=== PATIENT | male | born 1965 | race Caucasian/White ===

== ENCOUNTER 2018-08-21 05:34 | Inpatient (IN) | payer BC ==
[2018-08-21 06:01] LABS: #Eosinphils 0.1 thou/uL (0.0-0.7); #Monocytes 0.6 thou/uL (0.11-0.59); #Neutrophils 10.2 thou/uL (1.40-6.50); %Basophils 0.4 % (0.0-1.0); %Eosinophils 0.5 % (0.0-10.0); %Lymphocytes 8.1 % (21.0-51.0); %Neutrophils 86.1 % (42.0-75.0); Hemoglobin 14.5 g/dL (14.0-18.0); Mean Corpuscular HGB CONC 33.2 g/dL (32.0-36.0); Mean Corpuscular Hemoglobin 30.1 pg (27.0-31.0); Mean Corpuscular Volume 90.8 fL (78.0-98.0); Mean Platelet Volume 6.5 fL (7.4-10.4); Platelet Count 265 thou/uL (130-400); White Blood Cell (WBC) Count 11.8 thou/uL (4.8-10.8)
[2018-08-21 06:06] LABS: Prothrombin Time 13.6 SEC (12.0-14.7)
[2018-08-21 06:08] LABS: PTT 80.7 SEC (22.9-36.1)
[2018-08-21] MEDS ORDERED: Heparin 10,000 UNITS/1 ML VIAL ONE ×2 (06:13→06:36)
[2018-08-21] MEDS ORDERED: Fentanyl 100 MCG/2 ML VIAL ONE (06:13)
[2018-08-21 06:17] LABS: ALT (SGPT) 20 U/L (8-55); AST (SGOT) 43 U/L (5-34); Albumin 4.2 g/dL (3.5-5.0); Alkaline Phosphatase 73 U/L (40-150); Anion Gap 13 mmol/L (10-20); BUN (Urea Nitrogen) 18 mg/dL (8.4-25.7); Bilirubin, Total 0.4 mg/dL (0.2-1.2); Calc. Creatinine Clearance 0 mL/min (70-130); Calcium 9.1 mg/dL (7.8-10.44); Carbon Dioxide 25 mmol/L (22-29); Chloride 104 mmol/L (98-107); Estimated GFR-MDRD 66; Globulin 2.6 g/dL (2.4-3.5); Glucose 132 mg/dL (70-105); Potassium 4.4 mmol/L (3.5-5.1); Protein, Total 6.8 g/dL (6.0-8.3); Sodium 138 mmol/L (136-145)
[2018-08-21] MEDS ORDERED: Aggrastat 12.5 MG/250 ML 250 ML ONE (06:24)
[2018-08-21] MEDS ORDERED: Clopidogrel Bisulfate 300 MG TAB ONE (06:31)
--- NOTE | 2018-08-21 06:54 | HP ---
HISTORY: Karl Pina is a 53-year-old white male without any previous health problems. Over the last 2 weeks, he has had several episodes of chest pressure. He states that it occur while driving and would last approximately 1 hour. This morning, he was awakened at 1:00 a.m. with substernal chest pressure, associated with nausea, shortness of breath, and diaphoresis. He went to the emergency room in [place] and had 2 to [address]-segment elevation in II, III, and aVF as well as 1 to 2 mm V5, V6. Due to the time of transfer, the emergency room physician was instructed to give him TNKase followed by [id number]. He now arrives stating that his chest pain has improved, but it is still at approximately 50% level from what it was when he went into the emergency room. Also, EKG at this time shows continued 1 mm of elevation in II, III, and aVF, V5, and V6, one with reciprocal changes in I and aVL. PAST MEDICAL HISTORY: He denies any history of hypertension, diabetes, or hypercholesterolemia. MEDICATIONS: None. ALLERGIES: PENICILLIN. PAST SURGICAL HISTORY: Tonsillectomy and anal fistula removal. SOCIAL HISTORY: He smokes 1 pack per day. He does not drink. FAMILY HISTORY: He is adopted. REVIEW OF SYSTEMS: A 10-point review of systems is otherwise unremarkable. PHYSICAL EXAMINATION: VITAL SIGNS: Blood pressure 120/70, pulse of 80. HEENT: PERRL. NECK: Supple. CHEST: Clear. CARDIAC: S1 and S2 normal without any S3, S4, or murmurs. ABDOMEN: Normal bowel sounds without tenderness or organomegaly. EXTREMITIES: Revealed no clubbing, cyanosis, or edema. NEUROLOGIC: Grossly intact. SKIN: Warm and dry. LABORATORY DATA: EKG findings as described above. [place] labs - sodium 140, potassium 4.1, chloride 101, carbon dioxide 27, BUN 18, and creatinine 1.3. AST and ALT are normal. CK-MB 3.20, troponin I 0.384. BNP 67.8. CBC is unremarkable. INR of 1.0. IMPRESSION: 1. Inferolateral ST-elevation myocardial infarction. He was given TNKase due to travel delay, which ended up being over 2 hours. He has had what appears to be partial reperfusion with improvement on EKG as well as in his pain. However, he continues to have EKG changes and pain. 2. Smoker. 3. Unknown cholesterol status. RECOMMENDATIONS: Situation discussed with the patient. With continued ongoing pain and EKG changes, although improved, it is recommended that he undergo catheterization at this time. Risks of cardiac catheterization were discussed including , myocardial infarction, dye reaction, vascular injury, CVA, transfusion, limb loss, renal loss, etc. Also risk of intervention with PTCA and stent placement were discussed including , myocardial infarction, emergent CABG, restenosis, stent thrombosis, vessel perforation, etc. We discussed bare-metal stent versus drug-eluting stents. He has never had any gastrointestinal bleeding. No history of stroke and no history of upcoming surgeries. Overall, it is recommended that a drug-eluting stent be placed if needed. Job ID: [id number] MTDD
[2018-08-21] MEDS ORDERED: Sodium Chloride 0.9% 1,000 ML IV SCH (07:00)
[2018-08-21] MEDS ORDERED: Nitroglycerin 0.4 MG TAB (25 Tab Bottle) SL PRN (07:02)
[2018-08-21] MEDS ORDERED: Mag-Al 1200 mg/1200 mg/30 ML UDCUP PO PRN (07:03)
[2018-08-21] MEDS ORDERED: Milk Of Magnesia 30 ML UDCUP PO PRN (07:03)
[2018-08-21 07:13] LABS: CKMB 40.4 ng/mL (0-6.6)
[2018-08-21] MEDS ORDERED: Aggrastat 12.5 MG/250 ML 250 ML IVPB SCH (07:15)
[2018-08-21 08:34] VITALS: BMI 26.8
[2018-08-21] MEDS: Morphine 2 MG/ML SYRINGE SLOW IVP PRN ×2 (09:18→15:46)
[2018-08-21] MEDS: Aspirin Chewable 81 MG TAB PO SCH (09:22)
[2018-08-21 09:32] LABS: Cardiac Risk 4.5 (Less than 4.5)
[2018-08-21 09:40] LABS: Hemoglobin A1c 5.6 % (4.0-6.0)
[2018-08-21] MEDS ORDERED: Iopamidol 370 76% 50 ML VIAL FS ONE (10:15)
[2018-08-21] MEDS ORDERED: Iopamidol 370 76% 100 ML VIAL ONE (10:15)
--- NOTE | 2018-08-21 12:42 | CON ---
DATE OF CONSULTATION: HISTORY OF PRESENT ILLNESS: Karl Pina is a 53-year-old gentleman from [place] is a national dedicated truck driver, who apparently developed chest pain and shortness of breath. Abnormal EKG. He was brought to the ER and underwent cardiac catheterization, found to have three-vessel disease and a stent was placed in the circumflex. Pulmonary/Critical Care will be seeing while in the ICU. He is a smoker. He says he smokes less than half pack a day. Otherwise, denies any history of asthma, TB, or pneumonia. Most days, he is very active. PAST MEDICAL HISTORY: Otherwise surprisingly unremarkable for any major medical problems, history of diabetes and hypertension. PREVIOUS SURGERIES: Remote history of fistula surgery, tonsils, finger surgery. SOCIAL HISTORY: Alcohol, minimal. ALLERGIES: PENICILLIN. REVIEW OF SYSTEMS: A 10-point negative. PHYSICAL EXAMINATION: VITAL SIGNS: In the ICU, blood pressure 110/74, pulse 74, sats 100%, respiratory rate 20. GENERAL: Awake, alert, responsive. CHEST: No wheezing or crackles. CARDIAC: Normal S1, S2. No gallops. ABDOMEN: No masses. LABORATORY DATA: White count 84326, H and H is 14 and 43, platelet count is normal. Creatinine 1.7. GFR is 66. Troponin is 2.5. IMPRESSION: Inferior myocardial infarction, non ST-segment elevation. Status post catheter with a single stent, tobacco abuse. PLAN: Pulmonary/Critical Care will follow while in the ICU. He is on Aggrastat infusion, nitroglycerin p.r.n., morphine p.r.n., and Plavix. Probably, we will order a baseline chest x-ray in the morning. He has not had one. We will follow. Job ID: [id number]
[2018-08-21 18:35] LABS: CKMB 237.7 ng/mL (0-6.6)
[2018-08-21 18:45] LABS: Troponin I 200.264 ng/mL (< 0.028)
[2018-08-21] MEDS: Atorvastatin Calcium 40 MG TAB PO SCH (20:48)
[2018-08-21] MEDS ORDERED: Atorvastatin Calcium 20 MG TAB PO SCH (21:00)
[2018-08-22 00:42] LABS: Critical Call CKMB RESULT DECREASING
[2018-08-22 00:59] LABS: Critical Call Chem Troponin I RESULT DECREASING
[2018-08-22 06:08] LABS: #Lymphocytes 1.1 thou/uL (1.20-3.40); #Monocytes 0.4 thou/uL (0.11-0.59); %Basophils 0.2 % (0.0-1.0); %Eosinophils 0.3 % (0.0-10.0); %Lymphocytes 16.4 % (21.0-51.0); %Monocytes 6.7 % (0.0-10.0); %Neutrophils 76.5 % (42.0-75.0); Hemoglobin 12.4 g/dL (14.0-18.0); Mean Corpuscular HGB CONC 33.2 g/dL (32.0-36.0); Mean Corpuscular Volume 90.2 fL (78.0-98.0); Mean Platelet Volume 6.7 fL (7.4-10.4); Platelet Count 212 thou/uL (130-400); Red Blood Cell (RBC) Count 4.14 mill/uL (4.70-6.10); White Blood Cell (WBC) Count 6.5 thou/uL (4.8-10.8)
[2018-08-22 06:32] LABS: ALT (SGPT) 49 U/L (8-55); AST (SGOT) 205 U/L (5-34); Albumin 3.6 g/dL (3.5-5.0); Alkaline Phosphatase 63 U/L (40-150); Anion Gap 11 mmol/L (10-20); BUN (Urea Nitrogen) 14 mg/dL (8.4-25.7); Bilirubin, Total 0.4 mg/dL (0.2-1.2); Calc. Creatinine Clearance 93 mL/min (70-130); Calcium 8.8 mg/dL (7.8-10.44); Carbon Dioxide 27 mmol/L (22-29); Chloride 104 mmol/L (98-107); Estimated GFR-MDRD 68; Globulin 2.3 g/dL (2.4-3.5); Glucose 161 mg/dL (70-105); Potassium 3.7 mmol/L (3.5-5.1); Protein, Total 5.9 g/dL (6.0-8.3); Sodium 138 mmol/L (136-145)
[2018-08-22 06:36] LABS: CKMB 47.3 ng/mL (0-6.6); Critical Call CKMB RESULT DECREASING
[2018-08-22 06:56] LABS: Critical Call Chem Troponin I RESULT DECREASING; Troponin I 77.625 ng/mL (< 0.028)
--- NOTE | 2018-08-22 08:25 | RAD ---
PORTABLE CHEST: DATE: 08/22/2018. PROVIDED CLINICAL HISTORY: Myocardial infarction. FINDINGS: Cardiac silhouette appears prominent, likely at least partially on the basis of portable technique. No focal consolidation, pleural fluid, or pneumothorax apparent. IMPRESSION: No evidence for an acute cardiopulmonary process. POS: TPC
[2018-08-22] MEDS: Aspirin Chewable 81 MG TAB PO SCH (08:42)
[2018-08-22] MEDS: Clopidogrel Bisulfate 75 MG TAB PO SCH (08:42)
--- NOTE | 2018-08-22 09:22 | PRG ---
DATE OF SERVICE: 08/22/2018 SUBJECTIVE: This morning, he is awake, alert, and responsive, in no distress. No shortness of breath. Chest x-ray was normal. OBJECTIVE: VITAL SIGNS: His sats were 96% on room air, blood pressure 109/75, temperature 98, and respiratory rate 18. CHEST: Decreased breath sounds. No wheezing. CARDIAC: Normal S1 and S2. No gallops. ABDOMEN: No masses. LABORATORY DATA: His troponin markedly eleveted ASSESSMENT: Status post inferior myocardial infarction, status post stent, tobacco abuse. PLAN: He is on Plavix, aspirin, pain relief, nitroglycerin p.r.n., and supportive care. Pulmonary will follow while in the ICU. Job ID: [id number] MTDD
--- NOTE | 2018-08-22 15:43 | EKG ---
Test Reason : POST STENT Blood Pressure : / mmHG Vent. Rate : 083 BPM Atrial Rate : 083 BPM P-R Int : 148 ms QRS Dur : 120 ms QT Int : 402 ms P-R-T Axes : 039 -12 099 degrees QTc Int : 472 ms Normal sinus rhythm Right bundle branch block Inferior infarct , age undetermined Abnormal ECG Confirmed by ZOYA MCNULTY ([id number]) on 08/22/2018 3:42:39 PM Referred By: CHARLEY Confirmed By:ZOYA MCNULTY
--- NOTE | 2018-08-22 16:24 | EKG ---
Test Reason : Blood Pressure : / mmHG Vent. Rate : 083 BPM Atrial Rate : 083 BPM P-R Int : 144 ms QRS Dur : 112 ms QT Int : 402 ms P-R-T Axes : 046 -20 140 degrees QTc Int : 472 ms Normal sinus rhythm Incomplete right bundle branch block T wave abnormality, consider anterolateral ischemia Possible Lateral infarct , age undetermined Inferior infarct (cited on or before 21-AUG-2018) Abnormal ECG Confirmed by ZOYA MCNULTY ([id number]) on 08/22/2018 4:23:41 PM Referred By: CHARLEY Confirmed By:ZOYA MCNULTY
[2018-08-22] MEDS: Carvedilol 3.125 MG TAB PO SCH (17:36)
[2018-08-22] MEDS: Atorvastatin Calcium 40 MG TAB PO SCH (21:00)
[2018-08-23] MEDS: Carvedilol 3.125 MG TAB PO SCH ×2 (08:20→16:57)
[2018-08-23] MEDS: Clopidogrel Bisulfate 75 MG TAB PO SCH (08:20)
[2018-08-23] MEDS: Aspirin Chewable 81 MG TAB PO SCH (08:20)
[2018-08-23] MEDS ORDERED: CHLORPHENIRAMINE 4 MG PO PRN (11:23)
[2018-08-23] MEDS: Acetaminophen 325 MG TAB PO PRN ×2 (12:10→17:01)
[2018-08-23] MEDS: Loratadine 10 MG TAB PO PRN (13:12)
[2018-08-23] MEDS: Atorvastatin Calcium 40 MG TAB PO SCH (19:53)
[2018-08-24] MEDS: Loratadine 10 MG TAB PO PRN (08:47)
[2018-08-24] MEDS: Carvedilol 3.125 MG TAB PO SCH (08:47)
[2018-08-24] MEDS: Clopidogrel Bisulfate 75 MG TAB PO SCH (08:47)
[2018-08-24] MEDS: Aspirin Chewable 81 MG TAB PO SCH (08:48)
[2018-08-24 11:41] VITALS: BP 126/91; TEMP 98.7
--- NOTE | 2018-08-25 06:22 | DIS ---
DATE OF ADMISSION: 08/21/2018 DATE OF DISCHARGE: 08/24/2018 DISCHARGE DIAGNOSES: 1. Inferolateral ST-elevation myocardial infarction with TNKase given in [place], then drug-eluting stent placed in the mid circumflex. 2. Smoker. 3. Hypercholesterolemia. 4. Moderate left ventricular dysfunction with ischemic cardiomyopathy, ejection fraction 35 to 40%. HOSPITAL COURSE: The patient will be seen in 2 months for followup with fasting lipid profile, complete metabolic panel, and EKG being obtained. DISCHARGE MEDICATIONS: 1. Aspirin 81 mg daily. 2. Atorvastatin 40 mg daily. 3. Carvedilol 3.125 b.i.d. 4. Plavix 75 mg daily. 5. Nitroglycerin p.r.n. HOSPITAL COURSE: Mr. Pina had 2 weeks of progressive chest pressure and then awoke at 1:00 a.m. on the morning of admission with substernal chest pressure. He went to [place] [facility], had 2 to [address]-segment elevation in II, III, and aVF as well as 1 to 2 mm in V5 and V6. Due to the concern of transfer time, he was given TNKase followed by heparin. When he arrived, he stated his pain had significantly improved, but he was still having pain. EKG also done, he continued to have 1 mm elevation in II, III, aVF, V5, and V6. Decision was then made to go to the [facility] emergently. At catheterization, the left main was normal. The LAD had a 50% distal stenosis and a 70% apical stenosis. The circumflex had a 95% mid stenosis and a 50% large obtuse marginal three stenosis. The right coronary artery had 50% to 60% diffuse mid RCA disease. He underwent placement of a Synergy drug-eluting stent 3.5 x 20 mm. It was reduced from 95% to 0%. Left ventriculogram revealed moderate anterior and inferobasal hypokinesis with ejection fraction of 35% to 40%. His cholesterol is 184, triglycerides 57, HDL 41, and LDL 132. We discussed low-cholesterol diet and he was placed on atorvastatin. It was recommend that he never smokes again. We discussed complete avoidance of any nicotine. At the time of discharge, he was walking over 500 feet in the [place]. With his left ventricular dysfunction, he was placed on carvedilol, however, his blood pressure was such that BRIANNE inhibitor could not be started at this time. Job ID: [id number]
== END 2018-08-24 14:10 | disposition home or self-care (01) | DRG 247 ==
LOC: ERS 05:34 → SDC/OP 05:52 → CCU 06:58 → 2SE 08-22 17:50
PROVIDERS: ADMIT Internal Medicine Cardiovascular Disease; ATTEND Internal Medicine Cardiovascular Disease
PROC: 4A023N7 Measurement of Cardiac Sampling and Pressure, Left Heart, Percutaneous Approach (ICD-10-PCS; principal; 2018-08-21)
PROC: 027034Z Dilation of Coronary Artery, One Artery with Drug-eluting Intraluminal Device, Percutaneous Approach (ICD-10-PCS; 2018-08-21)
PROC: 02C03ZZ Extirpation of Matter from Coronary Artery, One Artery, Percutaneous Approach (ICD-10-PCS; 2018-08-21)
PROC: B2111ZZ Fluoroscopy of Multiple Coronary Arteries using Low Osmolar Contrast (ICD-10-PCS; 2018-08-21)
PROC: B2151ZZ Fluoroscopy of Left Heart using Low Osmolar Contrast (ICD-10-PCS; 2018-08-21)
DX: I21.19 ST elevation (STEMI) myocardial infarction involving other coronary artery of inferior wall (principal); F17.210 Nicotine dependence, cigarettes, uncomplicated; E78.00 Pure hypercholesterolemia, unspecified; I25.5 Ischemic cardiomyopathy; I25.10 Atherosclerotic heart disease of native coronary artery without angina pectoris
CPT/HCPCS: 36415; 37212; 71045; 80053; 80061; 82553; 83036; 84484; 85025; 85347; 85610; 85730; 86850; 86900; 86901; 92941; 93005; 93010; 93458; 93798; 99406; C1725; C1769; C1887; C9606; J1642; J1644; J2270; J3010; J3246; Q9967